=== PATIENT | male | born 1985 | race Caucasian/White ===

== ENCOUNTER 2017-11-14 20:52 | Emergency (ER) | payer OTHER ==
[~2017-11-14] VITALS: Ht 172.7 cm; Wt 83.9 kg
[2017-11-14 21:25] VITALS: BP 132/91
[2017-11-14] MEDS ORDERED: BACTRIM 400-801 EACH ORAL (21:27)
[2017-11-14] MEDS ORDERED: IBUPROFEN600 MG ORAL ×2 (21:51→22:16)
[2017-11-14] MEDS ORDERED: KEFLEX500 MG ORAL (21:51)
[2017-11-14] MEDS ORDERED: Lidocaine 1% 10mg/ml/Epi 0.005mg/ml 30ml vial INJ ONE (22:00)
[2017-11-14] MEDS ORDERED: CEPHALEXIN500 M1 ORAL (22:16)
[2017-11-14 22:20] VITALS: BP 132/91
--- NOTE | 2017-11-14 22:21 | Emergency Room Report ---
History of Present Illness General Chief Complaint: Skin Rash/Abscess Source: Patient Present Illness HPI The patient's 32-year-old male who presented after increased abdominal rash. Patient gradual onset of symptoms. He reports having multiple areas of the skin changes. The patient has history diabetes or he denies any recent fevers. He had been taking Bactrim which was prescribed earlier in the day. He denies any vomiting or immunocompromise. The patient had prior history of similar symptoms several years ago. Allergies: Coded Allergies: No Known Allergies (Unverified , 11/14/17) Patient History Past Medical History: see triage record Reviewed Nursing Documentation: PMH: Agreed; PSxH: Agreed Nursing Documentation-PMH Past Medical History: No Stated History Review of Systems All Other Systems: negative except mentioned in HPI Physical Exam Vital Signs Date Time Temp Pulse Resp B/P (MAP) Pulse Ox O2 Delivery O2 Flow Rate FiO2 11/14/17 21:21 98.4 71 16 132/91 97 Room Air 98.4 General Appearance: well appearing, no apparent distress Head: normocephalic, atraumatic ENT: hearing grossly normal, normal voice Neck: full range of motion, supple Respiratory: no respiratory distress, speaking full sentences Gastrointestinal: normal inspection, non tender, other - abscess near umbilicus with some small satellite lesions Musculoskeletal: no calf tenderness Neurologic: normal gait Psychiatric: mood/affect normal Skin: other - multiple small follicular infections Procedures Incision and Drainage Incision and Drainage : Blade Size: 11 I & D Procedure: betadine prep, sterile drapes applied, sterile dressing applied Wound Location: abdomen Wound's Depth, Shape: superficial Wound Length (cm): 1 Wound Explored: clean Anesthesia: Lidocaine w/ Epi Volume Anesthetic (ccs): 4 Patient Tolerated: Well Complications: None Medical Decision Making Diagnostic Impression: Primary Impression: Skin abscess ER Course Patient presented for skin rash. Differential diagnosis included was not limited to abscess, cellulitis, folliculitis, necrotizing fasciitis, among others. Patient has a benign exam and does not appear to require any further imaging or laboratory testing at this time. The patient had abscess drainage with a moderate amount pus. The patient tolerated well. He is given prescriptions for pain medications as well as antibiotics. Last Vital Signs Date Time Temp Pulse Resp B/P (MAP) Pulse Ox O2 Delivery O2 Flow Rate FiO2 11/14/17 21:25 98.4 71 16 132/91 97 Room Air 98.4 Status: improved Disposition: HOME, SELF-CARE Condition: Stable Scripts Ibuprofen* (MOTRIN*) 600 Mg Tablet 600 MG ORAL Q8H PRN for For Pain, #30 TAB 0 Refills Prov: Judah Delarosa 11/14/17 Cephalexin* (CEPHALEXIN*) 500 Mg Tablet 500 MG ORAL EVERY 6 HOURS, #28 CAP Prov: Judah Delarosa 11/14/17 Ibuprofen* (MOTRIN*) 600 Mg Tablet 600 MG ORAL Q8H PRN for For Pain, #30 TAB 0 Refills Prov: Judah Delarosa 11/14/17 Cephalexin* (KEFLEX*) 500 Mg Capsule 500 MG ORAL Q6H, #28 CAP 0 Refills Prov: Judah Delarosa 11/14/17 Departure Forms: Return to Work Return to Work in (Days): 2 Patient Instructions: Judah Mayen Nov 14, 2017 22:21
== END 2017-11-14 22:20 | disposition home or self-care (01) ==
LOC: EMR 21:45
DX: L02.211 Cutaneous abscess of abdominal wall (principal)
CPT/HCPCS: 10060; 99284